=== PATIENT | female | born 1935 | race Caucasian/White ===

== ENCOUNTER → 2016-11-27 | Outpatient (CLI) | payer MEDICARE ==
[~2016-11-27] MED LIST: ACETAMINOPHEN325 M1 PO; ALENDRONATE SOD70 MG PO; ALTACE; AMLODIPINE BESY10 MG PO; ASPIRIN81 M2 PO; ASPIRIN81 MG; ASPIRIN81 MG PO; ATORVASTATIN CA10 MG PO; BAYER CHEWABLE81 MG PO; CALCIUM 500 +1 EAC2 PO; CATAPRES-TTS-20.2 MG PO; COZAAR25 MG PO; DONEPEZIL HCL10 MG PO; FOSAMAX; FOSAMAX70 MG PO; LIPITOR; LUMIGAN2.5 ML OU; LUMIGAN5 ML OU; MEGACE ORA40 MG/ML S PO; MEGACE ORA400 MG/10 PO; NAMENDA XR14 MG PO; NAMENDA XR28 MG PO; NAMZARIC 14 MG1 EACH; NAMZARIC 14 MG1 EACH PO; NITROGLYGERIN0.4 MG; NORVASC; NORVASC PO; NORVASC10 MG PO; PANTOPRAZOLE SO40 MG PO; PREDNISONE PO; PROTONIX PO; RANITIDINE HCL150 M1 PO; REMERON15 MG PO; VITAMIN E400 UNI5 PO
--- NOTE | ~2016-11-27 | US37 ---
[facility] A Service of [facility] & [facility] RADIOLOGY TEXT RESULTS PATIENT: DORIS MAIN LOCATION: CNIV : 36 UNIT #: [id number] AGE: [address]: Dionicio Grimaldo MD SEX: F ORDER DR: [id number] [facility] [address] [place], [place] [address] [id number] O MR#: [id number] Acc #: [id number] NAME: DORIS MAIN. : 1935 SEX: F STUDY DATE/TIME: 11/27/2016 15:15 UNIT: CNIV ROOM: STUDY DESCRIPTION: US Carotid W/Doppler Bilateral Attending Physician: Dionicio Grimaldo M.D. Referring Physician: Dionicio Grimaldo M.D. Ordering Physician: Dionicio Grimaldo M.D. Primary Care Physician: Samm Reyna M.D. MEDICAL IMAGING REPORT This report is preliminary unless electronic signature is present EXAM Bilateral carotid duplex, 11/27/2016 CLINICAL HISTORY Carotid atherosclerosis, status post left carotid endarterectomy. FINDINGS There is patent flow seen throughout the right common carotid, internal carotid, and external carotid arteries. There is some heterogeneous, echogenic, and irregular plaque seen in the right carotid bifurcation, which extends into the internal and external carotid arteries. The right common carotid artery peak velocity is 56 cm/sec. The right internal carotid artery peak systolic/end-diastolic velocities are: Proximal 157/32 cm/sec, mid 153/22 cm/sec, distal 80/90 cm/sec. The right external carotid artery peak velocity is 97 cm/sec, and vertebral artery 76 cm/sec. The right ICA/CCA ratio is 2.8. There is patent flow seen throughout the left common carotid, internal carotid, and external carotid arteries. There is no significant atherosclerosis noted throughout these vessels. The left common carotid artery peak velocity is 51 cm/sec. The left internal carotid artery peak systolic/end-diastolic velocities are: Proximal 92/14 cm/sec, mid 103/21 cm/sec, distal 79/19 cm/sec. The left external carotid artery peak velocity is 79 cm/sec, external carotid artery 123 cm/sec. The left vertebral artery peak velocity is 65 cm/sec. The left ICA/CCA ratio is 2.0. IMPRESSION 1. There is moderate atherosclerosis of the right carotid artery, which is consistent with 50-69% stenosis by duplex criteria. This represents an increase from the 05/2016 study. 2. There is minimal atherosclerosis of the left carotid artery, which is STS. [facility] A Service of [facility] RADIOLOGY TEXT RESULTS PATIENT: DORIS MAIN LOCATION: [facility] : 36 UNIT #: [id number] AGE: [address]: Dionicio Grimaldo MD SEX: F ORDER DR: widely patent status post left carotid endarterectomy. 3. Vertebral flow is antegrade bilaterally. Dictated by... Jose G Flores M.D. THIS IS AN ELECTRONICALLY VERIFIED REPORT Jose G Flores M.D. at 11/28/2016 8:42 AM Cady TD: 11/27/2016 22:37 JOB #: [id number] MEDICAL IMAGING REPORT Page 1 of 1 COPY
== END | disposition home or self-care (01) ==
LOC: CNIV 13:52
DX: I65.23 Occlusion and stenosis of bilateral carotid arteries (principal)
CPT/HCPCS: 93880

== ENCOUNTER 2017-02-20 14:33 | Emergency (ER) | payer MEDICARE ==
--- NOTE | ~2017-02-20 | CR72 ---
[facility] A Service of [facility] RADIOLOGY TEXT RESULTS PATIENT: DORIS MAIN LOCATION: [facility] : 36 UNIT #: [id number] AGE: [address]: Les Johnson MD SEX: F ORDER DR: [id number] [facility] [address] [place], [place] [address] [id number] E MR#: [id number] Acc #: [id number] NAME: DORIS MAIN. : 1935 SEX: F STUDY DATE/TIME: 02/20/2017 15:25 UNIT: CHANTAL ROOM: STUDY DESCRIPTION: CR Chest Single View Portable Attending Physician: Les Johnson M.D. Ordering Physician: Les Johnson M.D. Primary Care Physician: Samm Reyna M.D. MEDICAL IMAGING REPORT This report is preliminary unless electronic signature is present EXAM Frontal chest, 02/20/2017. INDICATIONS 81-year-old female with chest pain, left-sided chest pain and congestion for 3 days. TECHNIQUE Frontal chest. COMPARISON Compared 10/10/2016. FINDINGS Cardiac silhouette is enlarged. Aorta demonstrates atherosclerotic change. Mild pulmonary hyperinflation is present. The vascularity is normal and there is old healed granulomatous disease. No pneumothorax. IMPRESSION 1. Cardiomegaly with pulmonary hyperinflation and old healed granulomatous disease. No significant change. Dictated by... Eddie Fortune M.D. THIS IS AN ELECTRONICALLY VERIFIED REPORT Eddie Fortune M.D. at 02/21/2017 9:16 AM Janine TD: 02/20/2017 22:52 JOB #: [id number] [facility] A Service of [facility] RADIOLOGY TEXT RESULTS PATIENT: DORIS MAIN LOCATION: [facility] : 36 UNIT #: [id number] AGE: [address]: Les Johnson MD SEX: F ORDER DR: MEDICAL IMAGING REPORT Page 1 of 1 COPY
--- NOTE | ~2017-02-20 | CT15 ---
[facility] A Service of [facility] RADIOLOGY TEXT RESULTS PATIENT: DORIS MAIN LOCATION: [facility] : 36 UNIT #: [id number] AGE: [address]: Les Johnson MD SEX: F ORDER DR: [id number] [facility] [address] [place], [place] [address] [id number] E MR#: [id number] Acc #: [id number] NAME: DORIS MAIN. : 1935 SEX: F STUDY DATE/TIME: 02/20/2017 20:01 UNIT: [facility] ROOM: STUDY DESCRIPTION: CT Angio Chest Attending Physician: Les Johnson M.D. Ordering Physician: Les Johnson M.D. Primary Care Physician: Samm Reyna M.D. MEDICAL IMAGING REPORT This report is preliminary unless electronic signature is present EXAM Chest, abdomen and pelvis CT angiogram, PROCEDURE Axial contrast-enhanced CT angiogram of the chest, abdomen and pelvis with three-dimensional reformats. This CT exam was performed with one or more of the following radiation dose reduction techniques: automatic exposure control, adjustment of mA and/or kV according to patient size, and iterative reconstruction. CLINICAL HISTORY Chest pain with nausea and vomiting for 2 days. FINDINGS There is no pulmonary infiltrate, pleural effusion, pneumothorax or suspicious nodule. The lungs parenchyma is normal. Multiple thyroid nodules are seen bilaterally. There is a small pericardial effusion. The thoracic aorta is normal in caliber. There is coronary atherosclerotic vascular calcification. The pulmonary arteries are well opacified and appear normal and there is no evidence of pulmonary embolism. ABDOMEN: There is some scarring and deformity in the liver either due to prior injury or other process but there has been cholecystectomy and there is no biliary obstruction or mass. The spleen is remarkable for several small ring-enhancing lesions, the largest about 13 mm in size and of uncertain etiology. The aorta is normal in caliber though there is extensive atheromatous irregularity. There are bilateral areas of renal cortical thinning, right [facility] A Service of [facility] RADIOLOGY TEXT RESULTS PATIENT: [facility]IS [facility]IN [id number] UNIT #: [id number] AGE: [address]: Les Johnson MD SEX: F ORDER DR: greater than left, though whether these are due to old ischemic or inflammatory injury is uncertain. There is no bowel obstruction. PELVIS: There is no pelvic mass or inflammatory change or abnormal fluid collection. 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 There are spinal degenerative changes and there is osteopenia but no acute bony abnormality. Changes in the liver and spleen appear chronic and unchanged since 08/26/2015. IMPRESSION 1. No definite acute abnormality. CT angiogram of the chest shows no aortic aneurysm or compelling evidence of pulmonary embolism though there is coronary atherosclerotic vascular calcification and mild cardiomegaly and a small pericardial effusion. 2. There are multiple thyroid nodules noted incidentally as well. 3. Changes in the abdomen and pelvis are chronic and stable and include old scarring in the liver anteriorly and small ring-enhancing splenic lesions which no matter what their etiology are unchanged in appearance since July 2015. 4. There has been cholecystectomy and there is no bowel or biliary obstruction. 5. There are areas of scarring in both kidneys with cortical thinning either due to old infectious or inflammatory or ischemic injury but in any event, also stable. No acute abnormality is seen. There is sigmoid diverticulosis but no evidence of diverticulitis or bowel obstruction. Dictated by... Sascha Basilio M.D. THIS IS AN ELECTRONICALLY VERIFIED REPORT Sascha Basilio M.D. at 02/23/2017 5:34 PM LEO/jamel TD: 02/21/2017 04:56 JOB #: [id number] MEDICAL IMAGING REPORT Page 1 of 1 COPY
--- NOTE | ~2017-02-20 | EKG ---
PATIENT: DORIS MAIN UNIT #: [id number] Ventricular Rate: 68 BPM Atrial Rate: 68 BPM P-R Interval: 136 ms QRS Duration: 92 ms Q-T Interval: 432 ms QTC Calculation(Bezet): 459 ms P [place]: 77 degrees Calculated R [place]: 67 degrees Calculated T [place]: 46 degrees Diagnosis Line: Normal sinus rhythm Diagnosis Line: Possible Left atrial enlargement Diagnosis Line: Junctional ST depression, probably normal Diagnosis Line: Borderline ECG Diagnosis Line: When compared with ECG of 21-JUL-2015 14:57, Diagnosis Line: Premature ventricular complexes are no longer Diagnosis Line: Present Diagnosis Line: Confirmed by MERRY MOSLEY MD ([id number]) on Diagnosis Line: 02/21/2017 10:56:56 AM INTERPRETING : INGRID
--- NOTE | ~2017-02-20 | CT14 ---
[facility] A Service of [facility] & [facility] RADIOLOGY TEXT RESULTS PATIENT: DORIS MAIN LOCATION: [facility] : 36 UNIT #: [id number] AGE: [address]: Les Johnson MD SEX: F ORDER DR: [id number] [facility] [address] [place], [place] [address] [id number] E MR#: [id number] Acc #: [id number] NAME: DORIS MAIN. : 1935 SEX: F STUDY DATE/TIME: 02/20/2017 20:01 UNIT: [facility] ROOM: STUDY DESCRIPTION: CT Angio Abdomen and Pelvis Attending Physician: Les Johnson M.D. Ordering Physician: Les Johnson M.D. Primary Care Physician: Samm Reyna M.D. MEDICAL IMAGING REPORT This report is preliminary unless electronic signature is present EXAM CT angiogram abdomen and pelvis, 02/20/2017 For results of this exam please see report of CT angiogram of the chest performed the same date. Dictated by... Sascha Basilio M.D. THIS IS AN ELECTRONICALLY VERIFIED REPORT Sascha Basilio M.D. at 02/23/2017 5:35 PM LEO/jamel TD: 02/21/2017 05:10 JOB #: [id number] MEDICAL IMAGING REPORT Page 1 of 1 COPY
[~2017-02-20 14:33] MED LIST changes: -ACETAMINOPHEN325 M1 PO; -BAYER CHEWABLE81 MG PO; -CALCIUM 500 +1 EAC2 PO; -LUMIGAN5 ML OU; -MEGACE ORA400 MG/10 PO; -NAMZARIC 14 MG1 EACH PO; -PANTOPRAZOLE SO40 MG PO; -VITAMIN E400 UNI5 PO
[2017-02-20 15:29] LABS: BASOPHIL# 0.1 X10e3 (0-0.3); BASOPHIL% 0.5 % (0-2.5); EOSINOPHIL# 0.1 X10e3 (0-0.7); EOSINOPHIL% 0.8 % (0.0-7.0); HEMATOCRIT 41.2 % (35.0-45.0); HEMOGLOBIN 13.5 gm/dL (12.0-16.0); LYMPHOCYTE# 2.6 X10e3 (1.0-3.5); LYMPHOCYTE% 21.6 % (17.0-45.0); MEAN CELL VOLUME 85.6 FL (83-96); MEAN CORPUSCULAR HGB CONC 32.7 g/dL (30-36); MEAN PLATELET VOLUME 8.6 FL (6.5-11.5); MONOCYTE# 0.6 X10e3 (0-1.0); MONOCYTE% 4.8 % (3.0-12.0); NEUTROPHIL# 8.7 X10e3 (1.5-7.1); NEUTROPHIL% 72.3 % (40-75); PLATELET COUNT 206 X10e3 (140-420); RED BLOOD COUNT 4.82 X10e (3.90-5.30); RED CELL DISTRIBUTION WIDTH 13.4 % (11.0-15.5)
[2017-02-20 15:48] LABS: DIFF IND NO
[2017-02-20 16:05] LABS: PARTIAL THROMBOPLASTIN TIME 23.3 SECONDS (23.5-31.3); PROTHROMBIN TIME (PATIENT) 10.7 SECONDS (10.0-11.7)
[2017-02-20 16:13] LABS: POC - CKMB <1.0 ng/mL (0.0-7.9); POC - TROPONIN <0.05 ng/mL (<=0.05)
[2017-02-20 16:17] LABS: ALBUMIN SERUM 4.4 g/dL (3.5-5.0); BILIRUBIN, DIRECT 0.1 mg/dL (0.0-0.2); BILIRUBIN,INDIRECT 0.7 mg/dL (0.0-0.9); BILIRUBIN,TOTAL 0.8 mg/dL (0.2-2.0); BUN/CREATININE RATIO 21.42; CALCIUM SERUM 9.2 mg/dL (8.4-10.2); CREATININE SERUM 0.7 mg/dL (0.6-1.4); GLOM FILT RATE Estimated 81.8 mL/min (>60)
[2017-02-20 16:19] LABS: POTASSIUM 2.8 mmol/L (3.5-5.1)
[2017-02-20 18:28] LABS: POC - CKMB <1.0 ng/mL (0.0-7.9); POC - TROPONIN <0.05 ng/mL (<=0.05)
== END 2017-02-20 21:15 | disposition home or self-care (01) ==
LOC: CED 14:33
PROVIDERS: Emergency Medicine
DX: R07.89 Other chest pain (principal); E87.6 Hypokalemia; I10 Essential (primary) hypertension; F41.9 Anxiety disorder, unspecified; K21.9 Gastro-esophageal reflux disease without esophagitis; F17.200 Nicotine dependence, unspecified, uncomplicated; Z88.8 Allergy status to other drugs, medicaments and biological substances
CPT/HCPCS: 36415; 71010; 71275; 74174; 80048; 80076; 82553; 83690; 83880; 84484; 85025; 85610; 85730; 93005; 99285; J2405; Q9967

== ENCOUNTER 2017-04-29 10:50 | Observation (INO) | payer MEDICARE ==
--- NOTE | ~2017-04-29 | DS ---
Unit #: [id number] #: [id number] Patient: DORIS MAIN [id number] [address] [id number] I MR#: [id number] NAME: DORIS MAIN. ROOM: 335 Age: 82 Sex: F Admission Date: 04/29/2017 : 1935 Discharge Date: 05/02/2017 Attending Physician: Shaun Alcala M.D. Primary Care Physician: Samm Reyna M.D. DISCHARGE SUMMARY DISCHARGE DIAGNOSES 1. Severe dementia with failure to thrive. 2. Protein energy malnutrition secondary to a decreased calorie intake. 3. Hypokalemia. 4. Gait instability. HOSPITAL COURSE The patient is a 81-year-old woman with a history significant for advanced dementia who had developed increasing generalized weakness along with weight loss from decreased appetite. During her hospitalization, her TSH and T4 were checked which were within normal range. The patient was started on Megace 400 mg p.o. b.i.d. following which her appetite significantly improved. She received physical therapy for her gait instability and she will continue to have home health services for physical therapy. The patient has advanced dementia and was on Namenda and Aricept. The Aricept was discontinued as it was thought that it was increasing her agitation as well as suppressing her appetite. The patient is doing well off of the Aricept. The patient will be discharged home today with home health services. DISCHARGE MEDICATIONS 1. Amlodipine 10 mg p.o. daily. 2. Namenda 14 mg p.o. daily. 3. Vitamin E 400 units p.o. daily. 4. Cozaar 25 mg p.o. b.i.d. 5. Lumigan eyedrops, 1 drop both eyes at bedtime. 6. Aspirin 81 mg p.o. daily. 7. Protonix 40 mg p.o. daily. 8. Calcium 500 mg with vitamin D tab, 1 p.o. t.i.d. 9. Megace 400 mg p.o. twice daily. DISCHARGE INSTRUCTIONS Patient to follow up with primary care physician. Patient to follow up with home health services for physical therapy. Dictated by... Michel Ho/belinda TD: 05/03/2017 09:28 Unit #: [id number] #: [id number] Patient: DORIS MAIN JOB #: [id number] DISCHARGE SUMMARY Page 1 of 1 X X DISCHARGE SUMMARY
--- NOTE | ~2017-04-29 | CR72 ---
[facility] A Service of [facility] & [facility] RADIOLOGY TEXT RESULTS PATIENT: DORIS MAIN LOCATION: [facility] 335-01 : 36 UNIT #: [id number] AGE: [address]: Jazmin Velasquez MD SEX: F ORDER DR: [id number] [facility] [address] [place], [place] [address] [id number] I MR#: [id number] Acc #: [id number] NAME: DORIS MAIN. : 1935 SEX: F STUDY DATE/TIME: 04/29/2017 11:48 UNIT: [facility] ROOM: 8[address]19 STUDY DESCRIPTION: CR Chest Single View Portable Attending Physician: Jazmin Velasquez M.D. Ordering Physician: Vince Malik M.D. Primary Care Physician: Samm Reyna M.D. MEDICAL IMAGING REPORT This report is preliminary unless electronic signature is present EXAM Portable chest 04/29/2017 HISTORY Shortness of breath for 2 days, generalized weakness and dementia. Benign essential hypertension, coronary artery disease. Smoking history. FINDINGS Stable cardiomegaly compared with 02/20/2017. The lungs are clear. There are no pleural effusions. IMPRESSION Mild cardiac enlargement. No active pulmonary disease. Dictated by... Claude Caicedo M.D. THIS IS AN ELECTRONICALLY VERIFIED REPORT Claude Caicedo M.D. at 04/30/2017 6:33 AM KRT/to TD: 04/29/2017 16:11 JOB #: [id number] MEDICAL IMAGING REPORT Page 1 of 1 COPY
--- NOTE | ~2017-04-29 | A ---
[facility] Nutrition Therapy DATE: 04/30/17 Patient: DORIS MANI Physician: CARON Address: [address] [place] [address] DRIVE Room/Bed: [address] [place] [address], Zip: [place] [address] Admit Date: 04/29/17 Date of : 36 Height: Weight: 92 41.8 NUTRITIONAL ASSESSMENT: REASON: Consult re: weight loss, low BMI Admitting dx: 82 y/o female admitted with weakness PMH: Pancreatitis, chronic abdominal pain/N/V, CAD, HTN, dementia, current smoker Anthropometrics: Ht: 64", Wt: 92 lbs, BMI: 15.8 (underweight) Labs: Reviewed; nothing significant Meds: Reviewed I/O & Bowel function: Last BM unknown, c/o nausea Skin Integrity: No significant issues, no edema Assessment: Chart reviewed, events noted. See admitting dx and PMH as stated above. RD previously assessed on 08/28/15 due to underweight status and consult- note reviewed. Pt has hx of chronic pancreatitis/abdominal pain/N/V. During 2016 admission EGD showed mild gastritis and a non obstucting Schatzki ring. CXR this admission showed nothing acute. Pt has been feeling sick and weak for about the past week with decreased appetite. Although she scored 0 points on the malnutrition risk screen, she reports a 10 lb weight loss in the past 9 months, which is reflected in her past weights. Clinically, she is underweight. She is currently c/o nausea and isn't able to eat much on her regular diet yet. Will order chocolate Ensure shakes TID. Of note, during 2016 admission she was discharged on Megace which she did not continue taking. She is confused and anxious at this time, has hx of dementia. Lives with her . See recs below, will follow. Dx: 1) Unintentional weight loss r/t recurrent illness, PMH, decreased appetite AEB patient reports 10 lb weight loss in 9 months (9/8% BW loss). 2) Underweight r/t clinical condition, history AEB BMI 15.8. Intervention: Ensure TID Monitoring, Evaluation and Goals: 1. PO intake > 75% of meals/supps. 2. Gradual weight gain towards a healthy BMI range. 3. Normalize GI fx. [facility] Nutrition Therapy DATE: 04/30/17 Patient: DORIS MAIN Physician: CARON Address: [address] [place] [address] DRIVE Room/Bed: [address] [place] [address], Zip: [place] [address] Admit Date: 04/29/17 Date of : 36 Height: Weight: 92 41.8 Monitor: per protocol, criteria to determine if above goals met Recommendations: 1. Agree with regular diet, please encourage oral intake and assist with meals. Consider adding Megace if pt agreeable. If she has any dysphagia, consult AIRPORT SCREENER. 2. RD ordering chocolate Ensure TID to increase oral kcal/protein intake. 3. Please weigh q 3 days for monitoring purposes, as the pt is clinically underweight. 4. Continue Zofran prn. Consider further GI testing. RD will follow Moderate nutrition risk Respectfully, Soumya Xiao RD, [employer] [employer] [facility] cc: client file
--- NOTE | ~2017-04-29 | HP ---
Unit #: [id number] #: [id number] Patient: DORIS MAIN [id number] [place], [place] [address] [id number] I MR#: [id number] NAME: DORIS MAIN. ROOM: 335 Age: 82 Sex: F Admission Date: 04/29/2017 : 1935 Attending Physician: Shaun Alcala M.D. Primary Care Physician: Samm Reyna M.D. HISTORY AND PHYSICAL CHIEF COMPLAINT Weakness. HPI The patient is an 81-year-old female with past medical history of demential, recurrent nausea, vomiting, abdominal pain, pancreatitis, weight loss, coronary artery disease, hypertension who presented to the emergency department for evaluation of the above. The patient has not been feeling well since April 23, 2017. She has had increasing generalized weakness, nausea, vomiting. She has not had any vomiting for the past 24 hours. No diarrhea. She has had decreased appetite. She has lost about 10 pounds over the past 9 months. Of note, she was hospitalized in July of 2015 for recurrent nausea, vomiting, and abdominal pain. She was discharged home on Megace, but did not continue taking that medication. In the emergency department, pulse was 53. Potassium is 3. Urinalysis showed findings concerning for possible urinary tract infection. She was given a gram of Rocephin as well as 40 mEq of potassium and a 1-liter normal saline bolus. She is being admitted to [facility] for evaluation and further treatment. PAST MEDICAL HISTORY 1. Admission to [facility] August 26, 2016, for recurrent nausea, vomiting, and abdominal pain. She was seen in consultation by Dr. Al during that admission. She underwent EGD that showed mild antral gastritis and a Schatzki ring that was nonobstructing. She was discharged home on Megace. 2. Hypertension. 3. Anxiety/depression. 4. Dementia. The patient is oriented to person only at baseline. 5. Peripheral arterial disease with carotid artery stenosis. 6. Coronary artery disease. The patient's sees Dr. López. 7. History of pancreatitis. PAST SURGICAL HISTORY 1. Cardiac catheterization. 2. Angioplasty. 3. Cholecystectomy. 4. Hysterectomy. 5. Colonoscopy, October 29, 2015, showed mild sigmoid and descending colon diverticulosis, but otherwise normal. SOCIAL HISTORY Unit #: [id number] #: [id number] Patient: DORIS MAIN The patient lives with her . She smokes a few cigarettes daily. She typically walks without assistance. Her code status is a do not resuscitate. FAMILY HISTORY Notable for her brother dying of a myocardial infarction. ALLERGIES Benazepril. HOME MEDICATIONS Amlodipine, losartan, Namzaric, donepezil, pantoprazole, atorvastatin, aspirin, Lumigan eyedrops. Home medications will need to be reviewed and verified. REVIEW OF SYSTEMS A complete review of systems is negative, except as indicated in HPI. DIAGNOSTIC STUDIES CARDIOVASCULAR: EKG shows sinus bradycardia with a rate of 59 beats per minute. IMAGING: Chest x-ray shows no acute abnormality. LABORATORY: Complete blood count is completely normal. Comprehensive metabolic panel notable for potassium of 3, glucose 115. Urinalysis notable for 2+ leukocyte esterase, 10-25 white blood cells. PHYSICAL EXAMINATION VITAL SIGNS: Temperature is 98, pulse 53, respirations 16, blood pressure 184/64, oxygen saturation is 97% on room air. GENERAL: The patient is a female who is awake and alert in no acute distress. HEENT: The head is atraumatic. Mucous membranes are moist. NECK: Supple. Trachea is midline. CARDIOVASCULAR: Regular rate and rhythm. LUNGS: Clear to auscultation bilaterally with no increased work of breathing. ABDOMEN: Soft and nontender with bowel sounds present in all four quadrants. EXTREMITIES: Nontender with no pedal edema. NEURO: The patient is awake and alert. She is oriented to person. She is moving all extremities. PSYCH: Mood and affect are normal. The patient is cooperative. SKIN: Skin of examined areas is warm and dry. ASSESSMENT The patient is an 81-year-old female with: 1. General weakness. 2. Urinary tract infection. The patient has not had prior urine cultures for review in [facility]. She received Rocephin in the emergency department. 3. Hypokalemia with potassium of 3. The patient received 40 mEq of potassium in the emergency department. 4. Recurrent nausea, vomiting with last EGD August 28, 2015, that showed nonobstructing Schatzki ring as well as mild prepyloric antral gastritis. 5. Abdominal pain. Unit #: [id number] #: [id number] Patient: DORIS MAIN Y 6. History of pancreatitis. 7. Weight loss. The patient has lost about 10 pounds over the past nine months. 8. Coronary artery disease. 9. Hypertension. 10. Dementia, oriented to person at baseline. PLAN 1. Admit to intermediate level for observation. 2. Normal saline at 75 mL an hour. 3. Advance to regular diet as tolerated. 4. Bed rest. 5. Fall precautions. 6. PT/OT to evaluate and treat. 7. legal operations manager/social work consult regarding home health for PT/OT. 8. Blood cultures x2. 9. Urine culture and sensitivity. 10. Rocephin 1 g IV daily pending results of urine culture. 11. Check magnesium level. 12. Potassium/magnesium protocol. 13. Serial cardiac enzymes. 14. Check TSH and lipase. 15. Zofran p.r.n. 16. Monitor heart rate closely. 17. Repeat labs in the morning including magnesium. 18. SCDs for DVT prophylaxis. 19. Regarding code status, the patient is a do not resuscitate. Dictated by Michel Butler/emma TD: 04/30/2017 11:07 JOB #: [id number] HISTORY AND PHYSICAL Page 1 of 1 X Jazmin Velasquez MD HISTORY AND PHYSICAL
--- NOTE | ~2017-04-29 | EKG ---
PATIENT: DORIS MAIN UNIT #: [id number] Ventricular Rate: 59 BPM Atrial Rate: 59 BPM P-R Interval: 118 ms QRS Duration: 92 ms Q-T Interval: 420 ms QTC Calculation(Bezet): 415 ms P [place]: 70 degrees Calculated R [place]: 72 degrees Calculated T [place]: 3 degrees Diagnosis Line: Sinus bradycardia Diagnosis Line: Nonspecific ST abnormality Baseline wander Diagnosis Line: Otherwise normal ECG Diagnosis Line: When compared with ECG of 20-FEB-2017 14:41, Diagnosis Line: Minimal criteria for Inferior infarct are now Diagnosis Line: Present Diagnosis Line: T wave inversion now evident in Inferior leads Diagnosis Line: Nonspecific T wave abnormality now evident in Diagnosis Line: Anterior leads Diagnosis Line: Confirmed by SANJAY SUTTON MD ([id number]) on 04/30/2017 Diagnosis Line: 2:02:26 PM INTERPRETING MD: LESLEY COLUNGA
--- NOTE | ~2017-04-29 | CR170 ---
[facility] A Service of [facility] RADIOLOGY TEXT RESULTS PATIENT: DORIS MAIN LOCATION: [facility] : 36 UNIT #: [id number] AGE: [address]: URSULA HYMAN V SEX: F ORDER DR: [id number] [place], [place] [address] [id number] MR#: [id number] #: [id number] NAME: DORIS MAIN. : 1935 SEX: F STUDY DATE/TIME: 05/01/2017 14:43 UNIT: [facility] ROOM: [facility] STUDY DESCRIPTION: CR Knee 2 Views Rt Attending Physician: Ursula Hyman M.D. Ordering Physician: Ursula Hyman M.D. Primary Care Physician: Samm Reyna M.D. MEDICAL IMAGING REPORT This report is preliminary unless electronic signature is present EXAM Right knee, 05/01/2017. HISTORY 82-year-old female with right knee pain and swelling for 2-3 days. No specific injury. COMPARISON None. FINDINGS Two views of the right knee demonstrate diffuse bony demineralization. No evidence of a displaced fracture or dislocation. No significant joint effusion. Joint spaces are normally maintained. Prominent chondrocalcinosis. Soft tissues are unremarkable. IMPRESSION 1. Osteopenia. No evidence of a displaced fracture or dislocation. 2. Chondrocalcinosis. Dictated by... Jeevan Maharaj M.D. THIS IS AN ELECTRONICALLY VERIFIED REPORT Jeevan Maharaj M.D. at 05/02/2017 3:11 PM RADHA/nishi TD: 05/02/2017 02:41 JOB #: [id number] MEDICAL IMAGING REPORT [facility] A Service [facility] RADIOLOGY TEXT RESULTS PATIENT: DORIS MAIN LOCATION: [facility] : 37 UNIT #: [id number] AGE: [address]: URSULA HYMAN V SEX: F ORDER DR: Page 1 of 1 COPY
[2017-04-29 11:55] LABS: BASOPHIL% 0.6 % (0-2.5); EOSINOPHIL# 0.1 X10e3 (0-0.7); HEMATOCRIT 40.7 % (35.0-45.0); HEMOGLOBIN 14.5 gm/dL (12.0-16.0); LYMPHOCYTE# 1.6 X10e3 (1.0-3.5); LYMPHOCYTE% 25.9 % (17.0-45.0); MEAN CELL VOLUME 84.3 FL (83-96); MEAN CORPUSCULAR HGB CONC 35.6 g/dL (30-36); MEAN PLATELET VOLUME 8.1 FL (6.5-11.5); MONOCYTE# 0.6 X10e3 (0-1.0); MONOCYTE% 9.1 % (3.0-12.0); NEUTROPHIL% 63.4 % (40-75); PLATELET COUNT 227 X10e3 (140-420); RED BLOOD COUNT 4.83 X10e (3.90-5.30); RED CELL DISTRIBUTION WIDTH 13.7 % (11.0-15.5); WHITE BLOOD COUNT 6.3 X10e3 (4.0-10.5)
[2017-04-29 12:02] LABS: DIFF IND NO
[2017-04-29 12:20] LABS: ALBUMIN SERUM 4.1 g/dL (3.5-5.0); BILIRUBIN, DIRECT 0.2 mg/dL (0.0-0.2); BILIRUBIN,INDIRECT 0.4 mg/dL (0.0-0.9); BILIRUBIN,TOTAL 0.6 mg/dL (0.2-2.0); BUN/CREATININE RATIO 26.25; CALCIUM SERUM 9.3 mg/dL (8.4-10.2); CREATININE SERUM 0.8 mg/dL (0.6-1.4); GLOM FILT RATE Estimated 69.7 mL/min (>60); PROTEIN TOTAL SERUM 6.6 g/dL (6.0-8.3)
[2017-04-29 13:52] LABS: URINE SOURCE CLEAN CATCH
[2017-04-29 13:58] LABS: URINE APPEARANCE CLEAR; URINE BILIRUBIN NEG (NEG); URINE BLOOD TRACE (NEG); URINE COLOR YELLOW; URINE GLUCOSE NEG (NEG); URINE KETONE NEG (NEG); URINE LEUKOCYTE ESTERASE 2+ (NEG); URINE NITRATE NEG (NEG); URINE PH 7.5 (5-8); URINE PROTEIN NEG (NEG); URINE SPECIFIC GRAVITY 1.008 (1.003-1.035); URINE UROBILINOGEN 0.2 MG/DL (NEG)
[2017-04-29 14:05] LABS: CULTURE INDICATED? YES; U HYALINE CASTS AUWI 0-2 /[LPF]; URBCS1 AUWI 0-2 /[HPF] (0-2); URINE BACTERIA AUWI NEG (NEGATIVE); URINE SQUAMOUS EPITHELIAL CELL OCC /[HPF]
[2017-04-29] MEDS ORDERED: COZAAR25 MG PO (15:05)
[2017-04-29] MEDS ORDERED: NORVASC10 MG PO (15:05)
[2017-04-29] MEDS ORDERED: NAMZARIC 14 MG1 EACH PO (15:06)
[2017-04-29] MEDS ORDERED: BAYER CHEWABLE81 MG PO (15:06)
[2017-04-29] MEDS ORDERED: DONEPEZIL HCL10 MG PO (15:06)
[2017-04-29] MEDS ORDERED: VITAMIN E400 UNI5 PO (15:07)
[2017-04-29] MEDS ORDERED: LUMIGAN5 ML OU (15:07)
[2017-04-29] MEDS ORDERED: PANTOPRAZOLE SO40 MG PO (15:08)
[2017-04-29 17:52] LABS: MAGNESIUM 1.9 mg/dL (1.6-3.0)
[2017-04-29 20:20] LABS: CK TOTAL 15 IU/L (26-140)
[2017-04-30 06:53] LABS: BUN/CREATININE RATIO 27.5; CALCIUM SERUM 9.1 mg/dL (8.4-10.2); CREATININE SERUM 0.8 mg/dL (0.6-1.4); GLOM FILT RATE Estimated 69.2 mL/min (>60); MAGNESIUM 1.8 mg/dL (1.6-3.0); POTASSIUM 3.7 mmol/L (3.5-5.1)
[2017-04-30 09:30] LABS: HEMATOCRIT 36.3 % (35.0-45.0); MEAN CORPUSCULAR HEMOGLOBIN 30.4 PG (28-34); MEAN CORPUSCULAR HGB CONC 34.4 g/dL (30-36); MEAN PLATELET VOLUME 8.2 FL (6.5-11.5); RED BLOOD COUNT 4.11 X10e (3.90-5.30); RED CELL DISTRIBUTION WIDTH 13.6 % (11.0-15.5)
[2017-04-30 09:40] LABS: HEMOGLOBIN 12.5 gm/dL (12.0-16.0)
[2017-04-30 09:41] LABS: MEAN CELL VOLUME 88.2 FL (83-96)
[2017-05-01 10:38] LABS: MAGNESIUM 2.1 mg/dL (1.6-3.0)
[2017-05-01 10:40] LABS: POTASSIUM 2.9 mmol/L (3.5-5.1)
[2017-05-02 08:43] LABS: MAGNESIUM 1.9 mg/dL (1.6-3.0); POTASSIUM 3.9 mmol/L (3.5-5.1)
[2017-05-02] MEDS ORDERED: ACETAMINOPHEN325 M1 PO (16:29)
[2017-05-02] MEDS ORDERED: MEGACE ORA400 MG/10 PO (16:30)
[2017-05-02] MEDS ORDERED: AMLODIPINE BESY10 MG PO (16:31)
[2017-05-02] MEDS ORDERED: CALCIUM 500 +1 EAC2 PO (16:32)
[2017-05-02] MEDS ORDERED: NAMENDA XR14 MG PO (16:39)
== END 2017-05-02 18:16 | disposition home or self-care (01) ==
LOC: CED 10:50 → CEDOF 14:50 → C3A PCU 14:50 → CEDOF 15:35 → CED 15:35 → C3A PCU 17:07 → CEDOF 17:07 → C3A PCU 04-30 07:04
PROVIDERS: Emergency Medicine; Family Medicine; Internal Medicine
DX: F03.90 Unspecified dementia, unspecified severity, without behavioral disturbance, psychotic disturbance, mood disturbance, and anxiety (principal); R62.7 Adult failure to thrive; E46 Unspecified protein-calorie malnutrition; E87.6 Hypokalemia; R26.9 Unspecified abnormalities of gait and mobility; I10 Essential (primary) hypertension; I25.10 Atherosclerotic heart disease of native coronary artery without angina pectoris; R53.1 Weakness; N39.0 Urinary tract infection, site not specified; R11.2 Nausea with vomiting, unspecified; F17.210 Nicotine dependence, cigarettes, uncomplicated; Z79.82 Long term (current) use of aspirin; Z66 Do not resuscitate; Z79.899 Other long term (current) drug therapy; Z98.61 Coronary angioplasty status; Z90.49 Acquired absence of other specified parts of digestive tract; Z90.710 Acquired absence of both cervix and uterus; Z98.890 Other specified postprocedural states
CPT/HCPCS: 36415; 71010; 73560; 80048; 80076; 81003; 82550; 82947; 83690; 83735; 84132; 84443; 84484; 85025; 85027; 87040; 87086; 93005; 94760; 96360; 96361; 96374; 96376; 97110; 97116; 97162; 97165; 97530; 99285; G0378; G8978-GP; G8979-GP; G8987-GO; G8988-GO; G8989-GO; J0360; J0696; J3475